=== PATIENT | female | born 1980 | race Caucasian/White ===

== ENCOUNTER 2017-01-17 00:20 | Emergency (ER) | payer OTHER ==
[2017-01-17] MEDS ORDERED: Sodium Chloride 0.9% 1,000 ML IV ONE (00:52)
[2017-01-17] MEDS ORDERED: diphenhydrAMINE 50 MG/ML SDV IVPUSH ONE (00:52)
[2017-01-17] MEDS ORDERED: Ondansetron 4 MG/2 ML SDV IVPUSH ONE (00:52)
[2017-01-17] MEDS ORDERED: Ketorolac 30 MG/ML SDV IVPUSH ONE (00:52)
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
[2017-01-17 01:33] LABS: CHLORIDE,CL 106 mmol/L (98-110); SODIUM,NA 137 mmol/L (136-146)
[2017-01-17 03:14] VITALS: BP 135/75
--- NOTE | 2017-01-17 18:17 | CT ---
EXAM DATE: 01/17/17 PATIENT'S AGE: 36 Patient: KEVEN DEGROOT Facility: [place], [place] Site . Site : 1980 Study: CT Head WO CONT [id number] 2:06:42 AM Ordering Physician: Do Mcadams Final Report: INDICATION: Headache TECHNIQUE: CT head without contrast. COMPARISON: MR brain June 20, 2008 FINDINGS: CSF spaces: Within normal limits for age. Brain parenchyma: The fritz-white differentiation is normal. No sign of mass, hemorrhage, or midline shift. Skull base and calvarium: The visualized paranasal sinuses and mastoid air cells demonstrate no acute or significant findings. The visualized orbits are grossly unremarkable. No skull fractures. IMPRESSION: Unremarkable noncontrast head CT. Please note that all CT scans at this facility use dose modulation, iterative reconstruction, and/or weight-based dosing when appropriate to reduce radiation dose to as low as reasonably achievable. Dictated by Ann Marie Lopez MD @ Jan 17 2017 2:16AM (Electronic Signature) Report Signed [facility] Proxy. [facility]
== END 2017-01-17 03:15 | disposition home or self-care (01) ==
LOC: MW.ED 00:20
DX: G44.209 Tension-type headache, unspecified, not intractable (principal); M62.838 Other muscle spasm; Z79.899 Other long term (current) drug therapy; Z87.440 Personal history of urinary (tract) infections; Z90.49 Acquired absence of other specified parts of digestive tract
CPT/HCPCS: 70450; 80053; 85025; 96361; 96374; 96375; 99284; J1200; J1885; J2360; J2405; J7040; 99283

== ENCOUNTER 2017-07-24 14:01 | Emergency (ER) | payer OTHER ==
[2017-07-24] MEDS ORDERED: Bacitracin Oint 1 GM U/D Packet TOP ONE (16:20)
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
[2017-07-24] MEDS ORDERED: Morphine 4 MG/ML Syringe IM ONE (16:36)
[2017-07-24] MEDS ORDERED: Levofloxacin 500 MG Tab PO ONE (16:48)
[2017-07-24] MEDS ORDERED: Levofloxacin 250 MG Tab PO ONE (16:49)
[2017-07-24] MEDS ORDERED: Levofloxacin 500 MG Tab ONE (16:57)
[2017-07-24 18:31] VITALS: BP 124/75
--- NOTE | 2017-07-25 13:46 | CR ---
EXAM DATE: 07/24/17 PATIENT'S AGE: 37 Patient: KEVEN DEGROOT Facility: [place], [place] Site . Site : 1980 Study: XRay Extremity Left [id number] 2:39:32 PM Ordering Physician: Doctor Kaba Final Report: INDICATION: Soft tissue infection medial left great toe. TECHNIQUE: Two views of the left foot. COMPARISON: April 08, 2016. FINDINGS: There is soft tissue swelling along the medial aspect of the left great toe. This is new compared to the prior study. There is no evidence for underlying erosion or soft tissue gas. There appears to be soft tissue swelling anterior to the ankle. Postsurgical change of the ankle apparent Spurring of the dorsal midfoot and calcaneus. IMPRESSION: Soft tissue swelling along the left great toe particularly medially. No subcutaneous gas or skeletal erosion. Dictated by Brian Faulkner MD @ 07/24/2017 2:54:02 PM Dictated by: Brian Faulkner MD @ 07/24/2017 14:54:17 (Electronic Signature) Report Signed [facility] Proxy. [facility]
== END 2017-07-24 18:00 | disposition home or self-care (01) ==
LOC: MW.ED 14:01
DX: L03.116 Cellulitis of left lower limb (principal); F17.210 Nicotine dependence, cigarettes, uncomplicated
CPT/HCPCS: 73620; 87070; 96372; 99284; A9270; J2270; 87077; 87186

== ENCOUNTER 2018-04-12 20:54 | Inpatient (IN) | payer OTHER ==
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
[2018-04-12] MEDS ORDERED: Ketorolac 60 MG/2 ML SDV IM ONE (21:32)
[2018-04-12] MEDS ORDERED: Sodium Chloride 0.9% 2.5 ML Syringe FLUSH PRN (21:41)
[2018-04-12] MEDS ORDERED: Sodium Chloride 0.9% 10 ML Syringe FLUSH PRN (21:41)
[2018-04-12] MEDS ORDERED: cefTRIAXone 1 GM in Premix Bag 1 BAG IV ONE (21:50)
[2018-04-12 21:54] LABS: CHLORIDE,CL 102 mmol/L (98-107); SODIUM,NA 135 mmol/L (136-145)
[2018-04-12] MEDS ORDERED: Morphine 2 MG/ML Syringe IVPUSH ONE (23:35)
[2018-04-13] MEDS: Morphine 2 MG/ML Syringe IVPUSH PRN ×9 (03:01→22:43)
[2018-04-13] MEDS: Sodium Chloride 0.9% 1,000 ML IV SCH (03:06)
[2018-04-13] MEDS: oxyCODONE 5 MG Tab PO PRN ×5 (03:58→22:42)
[2018-04-13 06:03] LABS: CHLORIDE,CL 104 mmol/L (98-107); SODIUM,NA 138 mmol/L (136-145)
[2018-04-13] MEDS ORDERED: Sodium Chloride 0.9% 1,000 ML IV ONE (07:04)
[2018-04-13] MEDS ORDERED: Ketorolac 30 MG/ML SDV IVPUSH ONE (07:06)
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
[2018-04-13] MEDS: Piperacillin/Tazobactam 3.375 GM in Sodium Chloride 0.9% 50 ML IV SCH ×3 (08:00→20:35)
[2018-04-13] MEDS: Vancomycin 1.5 GM in Sodium Chloride 0.9% 500 ML IV SCH ×2 (08:50→16:20)
--- NOTE | 2018-04-13 11:18 | US ---
EXAM DATE: 04/12/18 PATIENT'S AGE: 37 Patient: KEVEN DEGROOT Facility: [place], [place] Site . Site : 1980 Study: US Extremity Venous left [id number]/26/2018 10:24:14 PM Ordering Physician: Doctor Kaba Final Report: INDICATION: Pain, previous ankle fracture. COMPARISON: 01/07/2016 FINDINGS: Ultrasound of the venous drainage of the left lower extremity shows no evidence of deep venous thrombosis. There is normal antegrade flow from the posterior tibial and popliteal veins superiorly through the common femoral vein. There is normal augmentation and compressibility of the veins. There has been no interval change. IMPRESSION: NO EVIDENCE OF DEEP VENOUS THROMBOSIS ON ULTRASOUND EXAMINATION OF THE LEFT LOWER EXTREMITY. Dictated by Suleman Ya MD @ Apr 12 2018 10:34PM (Electronic Signature) Report Signed by Proxy. DONTE
--- NOTE | 2018-04-13 11:19 | US ---
EXAM DATE: 04/12/18 PATIENT'S AGE: 37 Patient: KEVEN DEGROOT Facility: [place], [place] : 1980 Study: US Extremity Arterial [id number]/26/2018 10:24:58 PM Ordering Physician: Doctor Kaba Final Report: Exam: The left lower extremity arteries were examined per exam specific protocol with fritz-scale ultrasound, color-flow and Doppler spectral analysis. Peak systolic velocities (PSV), Doppler waveform quality and velocity ratios if applicable, were documented at sites per exam specific protocol. Indication: Left leg pain. Comparison: None. Findings: The left lower extremity arteries are patent with multiphasic flow throughout. Velocities measure 124 cm/sec in the common femoral artery, 119-136 cm/sec in the superficial femoral artery, 77 cm/sec in the popliteal artery, 44 cm/sec in the proximal posterior tibial artery transitioning to 110 cm/sec in the distal posterior tibial artery, 29 cm/sec in the peroneal artery, 35 cm/sec in the anterior tibial artery, and 120 cm/sec in the dorsalis pedis artery. Impression: Patent left lower extremity arteries with multiphasic flow. No evidence of hemodynamically significant stenosis. Dictated by Ivan Santiago MD @ Apr 13 2018 7:51AM (Electronic Signature) Report Signed by Proxy. DONTE
--- NOTE | 2018-04-13 11:20 | CR ---
EXAM DATE: 04/12/18 PATIENT'S AGE: 37 Patient: KEVEN DEGROOT Facility: [place], [place] Site . Site : 1980 Study: XRay Extremity Left ankle [id number]/26/2018 10:34:48 PM Ordering Physician: Doctor Kaba Final Report: HISTORY: Pain and swelling with no history of injury. COMPARISON: 01/07/2016 FINDINGS: AP, lateral and oblique views of the left ankle were obtained for a total of three views. There is no sign of acute fracture or dislocation. Again seen are changes of ORIF of a distal fibular fracture with a lateral metallic plate and multiple anchoring screws. A single interfragmentary screws again seen. Again seen are tunnels in the distal tibia and fibula from stabilization of the syndesmosis, with suture anchors. Again seen is prominent sclerosis of the mid-distal tibial and fibular shafts with moderate deformity, consistent with solid osseous union of oblique fractures. The ankle mortise is intact, with mild irregularity of the articular surfaces consistent with secondary osteoarthritis. The talar dome is intact. Again seen is prominence lateral and moderate medial soft tissue swelling with no sign of radiopaque foreign body or gas in the soft tissues. Moderate diffuse soft tissue swelling is seen in the distal calf. There is no sign of a joint effusion. Again seen is a moderate plantar calcaneal spur. IMPRESSION: NO CHANGE IN PROMINENT LATERAL AND MODERATE MEDIAL SOFT TISSUE SWELLING OF THE ANKLE, WITH CONTINUED MODERATE DIFFUSE SOFT TISSUE SWELLING OF THE DISTAL CALF. STABLE APPEARANCE OF ORIF OF A DISTAL FIBULAR FRACTURE AND STABILIZATION OF THE TIBIAL-FIBULAR SYNDESMOSIS. STABLE MODERATE DEFORMITY FROM HEALED FRACTURES OF THE MID-DISTAL TIBIAL AND FIBULAR SHAFT. Dictated by Suleman Ya MD @ Apr 12 2018 10:41PM (Electronic Signature) Report Signed by Proxy. DONTE
--- NOTE | 2018-04-13 11:21 | CR ---
EXAM DATE: 04/12/18 PATIENT'S AGE: 37 Patient: KEVEN DEGROOT Facility: [place], [place] Site . Site : 1980 Study: XRay Extremity Left tib/fib [id number]/26/2018 10:35:16 PM Ordering Physician: Doctor Kaba Final Report: INDICATION: Pain and swelling with no history of injury. COMPARISON: Left ankle from 01/07/2016 FINDINGS: AP and lateral views of the left tibia and fibula were obtained. Again seen are old, healed fractures of the mid-distal tibial shaft with moderate deformity. There is moderate osseous bridging of the interosseous space in the area of the fractures. Again seen are changes of ORIF of a distal fibular fracture with a lateral metallic sideplate, multiple anchoring screws, and a single interfragmentary screw. Changes of stabilization of the tibial-fibular syndesmosis are again seen with transverse tunnels in the distal tibia and fibula as well as suture anchors. There is no sign of acute fracture, dislocation, or joint effusion. There is moderate diffuse soft tissue swelling of the calf and knee. There is no sign of any gas in the soft tissues or radiopaque foreign body. Surgical clips are seen from vascular surgery in the lateral aspect of the proximal calf. Again seen are mild degenerative changes of the ankle, with mild irregularity of the articular surface of the distal tibia. The visualized portion of the knee is unremarkable with no degenerative change. IMPRESSION: MODERATE DIFFUSE SOFT TISSUE SWELLING OF THE CALF AND KNEE. NO SIGN OF RADIOPAQUE FOREIGN BODY OR GAS IN THE SOFT TISSUES. NO SIGN OF UNDERLYING OSSEOUS INJURY. STABLE OLD, HEALED FRACTURES OF THE MID-DISTAL FIBULAR AND TIBIAL SHAFTS. STABLE POSTOPERATIVE CHANGES OF THE LEFT ANKLE. Dictated by Suleman Ya MD @ Apr 12 2018 10:47PM (Electronic Signature) Report Signed by Proxy. DONTE
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
[2018-04-13] MEDS: Pregabalin 50 MG Cap PO SCH ×2 (13:57→20:08)
[2018-04-13] MEDS: Ketorolac 30 MG/ML SDV IVPUSH PRN ×2 (16:19→23:53)
[2018-04-14] MEDS: Sodium Chloride 0.9% 1,000 ML IV SCH (00:45)
[2018-04-14] MEDS: Morphine 2 MG/ML Syringe IVPUSH PRN ×6 (00:46→22:45)
[2018-04-14] MEDS: Vancomycin 1.5 GM in Sodium Chloride 0.9% 500 ML IV SCH ×4 (00:49→23:00)
[2018-04-14] MEDS: Piperacillin/Tazobactam 3.375 GM in Sodium Chloride 0.9% 50 ML IV SCH ×4 (02:38→19:38)
[2018-04-14] MEDS: oxyCODONE 5 MG Tab PO PRN ×2 (05:13→08:54)
[2018-04-14 05:50] LABS: CHLORIDE,CL 107 mmol/L (98-107); SODIUM,NA 139 mmol/L (136-145)
[2018-04-14] MEDS: Ketorolac 30 MG/ML SDV IVPUSH PRN ×2 (08:05→14:21)
[2018-04-14] MEDS: Pregabalin 50 MG Cap PO SCH ×2 (08:54→20:25)
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
[2018-04-14] MEDS ORDERED: Sodium Chloride 0.9% 1,000 ML IV ONE (09:11)
[2018-04-14] MEDS ORDERED: Ondansetron 4 MG/2 ML SDV IVPUSH ONE (12:11)
[2018-04-14] MEDS: Temazepam 15 MG Cap PO PRN (22:50)
[2018-04-15] MEDS: Ondansetron 4 MG/2 ML SDV IVPUSH PRN ×3 (00:43→11:12)
[2018-04-15] MEDS: Piperacillin/Tazobactam 3.375 GM in Sodium Chloride 0.9% 50 ML IV SCH ×4 (00:43→18:55)
[2018-04-15] MEDS: Morphine 2 MG/ML Syringe IVPUSH PRN ×3 (00:46→23:11)
[2018-04-15] MEDS ORDERED: Sodium Chloride 0.9% 1,000 ML IV ONE (08:22)
--- NOTE | 2018-04-15 08:55 | PCM.PN ---
- General Info Date of Service: 04/15/18 Admission Dx/Problem (Free Text): The patient is a 37-year-old lady admitted to acute hospitalization on April 13, 2018 after concern for sepsis. The patient had swelling, pain in her left lower extremity and there was concern about osteomyelitis. The patient today says that she is feeling somewhat better although later in the afternoon she had an episode of severe nausea and vomiting. The patient had been unable to tolerate diet. The patient also has poor IV access and is receiving IV vancomycin. The patient today has been doing somewhat better. Her pain has been better controlled with the use of Lyrica. The patient has been ambulating. Functional Status: Reports: Pain Controlled, Ambulating. Denies: Tolerating Diet - Review of Systems General: Reports: Weakness HEENT: Reports: No Symptoms Pulmonary: Reports: No Symptoms Cardiovascular: Reports: Chest Pain Gastrointestinal: Reports: Nausea, Vomiting Genitourinary: Reports: No Symptoms Musculoskeletal: Reports: Leg Pain Skin: Reports: No Symptoms Neurological: Reports: No Symptoms Psychiatric: Reports: No Symptoms - Patient Data Vitals - Most Recent: Last Vital Signs Temp 37.7 C 04/15/18 03:35 Pulse 86 04/15/18 03:35 Resp 16 04/15/18 03:35 BP 123/71 04/15/18 03:35 Pulse Ox 92 L 04/15/18 03:35 Weight - Most Recent: 113.262 kg I&O - Last 24 Hours: Intake & Output 04/14/18 04/15/18 04/15/18 22:59 06:59 14:59 Intake Total 50 600 Balance 50 600 Lab Results Last 24 Hours: Laboratory Results - last 24 hr 04/15/18 04/15/18 Range/Units 06:23 06:23 WBC 11.91 H (4.0-11.0) K/uL RBC 3.45 L (4.30-5.90) M/uL Hgb 9.4 L (12.0-16.0) g/dL Hct 30.5 L (36.0-46.0) % MCV 88.4 (80.0-98.0) fL MCH 27.2 (27.0-32.0) pg MCHC 30.8 L (31.0-37.0) g/dL RDW Std Deviation 52.9 (28.0-62.0) fl RDW Coeff of Cass 16 H (11.0-15.0) % Plt Count 186 (150-400) K/uL MPV 10.30 (7.40-12.00) fL Neut % (Auto) 76.0 (48.0-80.0) % Lymph % (Auto) 12.8 L (16.0-40.0) % [place] % (Auto) 10.2 (0.0-15.0) % Eos % (Auto) 0.8 (0.0-7.0) % Baso % (Auto) 0.2 (0.0-1.5) % Neut # (Auto) 9.1 H (1.4-5.7) K/uL Lymph # (Auto) 1.5 (0.6-2.4) K/uL [place] # (Auto) 1.2 H (0.0-0.8) K/uL Eos # (Auto) 0.1 (0.0-0.7) K/uL Baso # (Auto) 0.0 (0.0-0.1) K/uL Nucleated RBC % 0.0 /100WBC Nucleated RBCs # 0 K/uL Sodium 137 (136-145) mmol/L Potassium 3.7 (3.5-5.1) mmol/L Chloride 107 (98-107) mmol/L Carbon Dioxide 24.3 (21.0-32.0) mmol/L BUN 11 (7.0-18.0) mg/dL Creatinine 1.1 H (0.6-1.0) mg/dL Est Cr Clr Drug Dosing 73.18 mL/min Estimated GFR (MDRD) 55.9 ml/min Glucose 111 H (74-106) mg/dL Calcium 7.9 L (8.5-10.1) mg/dL Total Bilirubin 0.5 (0.2-1.0) mg/dL AST 15 (15-37) IU/L ALT 25 (14-63) IU/L Alkaline Phosphatase 97 (46-116) U/L Total Protein 6.4 (6.4-8.2) g/dL Albumin 2.3 L (3.4-5.0) g/dL Globulin 4.1 H (2.0-3.5) g/dL Albumin/Globulin Ratio 0.6 L (1.3-2.8) Matt Results Last 24 Hours: Microbiology 04/13/18 07:30 Urine Culture - Final Urine, Voided MIXED NERY <1000 CFU/ML 04/12/18 21:50 Aerobic Blood Culture - Preliminary Blood - Venous NO GROWTH AFTER 2 DAYS Anaerobic Blood Culture - Preliminary NO GROWTH AFTER 2 DAYS 04/12/18 21:55 Aerobic Blood Culture - Preliminary Blood - Venous - Lab Draw NO GROWTH AFTER 2 DAYS Anaerobic Blood Culture - Preliminary NO GROWTH AFTER 2 DAYS Med Orders - Current: Current Medications Vancomycin HCl 1.5 gm/ Sodium (Chloride) 500 mls @ 333.333 mls/hr IV Q8H [facility] Last Admin: 04/14/18 23:00 Dose: 333.333 mls/hr Piperacillin Sod/Tazobactam (Sod 3.375 gm/ Sodium Chloride) 50 mls @ 100 mls/ hr IV Q6H [facility] Last Admin: 04/15/18 06:43 Dose: 100 mls/hr Sodium Chloride (Normal Saline) 1,000 mls @ 999 mls/hr IV STAT ONE Stop: 04/15/18 09:22 Ketorolac Tromethamine (Toradol) 30 mg IVPUSH Q6H PRN PRN Reason: Pain Stop: 04/18/18 15:44 Last Admin: 04/14/18 14:21 Dose: 30 mg Morphine Sulfate (Morphine) 2 mg IVPUSH Q2H PRN PRN Reason: Pain Last Admin: 04/15/18 00:46 Dose: 2 mg Ondansetron HCl (Zofran) 4 mg IVPUSH Q6H PRN PRN Reason: Nausea Last Admin: 04/15/18 00:43 Dose: 4 mg Oxycodone HCl (Oxycodone) 5 mg PO Q4H PRN PRN Reason: Pain Last Admin: 04/14/18 08:54 Dose: 5 mg Pregabalin (Lyrica) 50 mg PO BID [facility] Last Admin: 04/14/18 20:25 Dose: 50 mg Sodium Chloride (Saline Flush) 10 ml FLUSH ASDIRECTED PRN PRN Reason: Keep Vein Open Sodium Chloride (Saline Flush) 2.5 ml FLUSH ASDIRECTED PRN PRN Reason: Keep Vein Open Temazepam (Restoril) 15 mg PO BEDTIME PRN PRN Reason: Sleep Last Admin: 04/14/18 22:50 Dose: 15 mg Vancomycin HCl (Pharmacy To Dose - Vancomycin) 1 dose .XX ASDIRECTED [facility] Discontinued Medications Ceftriaxone Sodium/Dextrose 1 (gm/ Premix) 50 mls @ 100 mls/hr IV ONETIME ONE Stop: 04/12/18 22:19 Last Admin: 04/12/18 22:34 Dose: 100 mls/hr Vancomycin HCl 1 gm/ Sodium (Chloride) 250 mls @ 250 mls/hr IV ONETIME ONE Stop: 04/13/18 00:23 Last Admin: 04/12/18 23:29 Dose: 250 mls/hr Sodium Chloride (Normal Saline) 1,000 mls @ 200 mls/hr IV ASDIRECTED [facility] Last Infusion: 04/14/18 00:48 Dose: 200 mls/hr Sodium Chloride (Normal Saline) 1,000 mls @ 999 mls/hr IV STAT ONE Stop: 04/13/18 08:04 Last Admin: 04/13/18 07:54 Dose: 999 mls/hr Sodium Chloride (Normal Saline) 1,000 mls @ 125 mls/hr IV CONTINUOUS ONE Stop: 04/14/18 17:10 Last Admin: 04/14/18 11:22 Dose: 125 mls/hr Ketorolac Tromethamine (Toradol) 60 mg IM ONETIME ONE Stop: 04/12/18 21:33 Last Admin: 04/12/18 21:38 Dose: 60 mg Ketorolac Tromethamine (Toradol) 30 mg IVPUSH ONETIME ONE Stop: 04/13/18 07:07 Last Admin: 04/13/18 07:49 Dose: 30 mg Morphine Sulfate (Morphine) 2 mg IVPUSH ONETIME ONE Stop: 04/12/18 23:36 Last Admin: 04/12/18 23:42 Dose: 2 mg Ondansetron HCl (Zofran) 4 mg IVPUSH ONETIME ONE Stop: 04/14/18 12:12 Last Admin: 04/14/18 12:20 Dose: 4 mg - Exam Quality Assessment: No: Supplemental Oxygen, Urine Catheter General: Alert, Oriented, Cooperative, No Acute Distress HEENT: Pupils Equal, Pupils Reactive, EOMI. No: Scleral Icterus Neck: Supple, Trachea Midline, No Thyromegaly. No: Lymphadenopathy Lungs: Clear to Auscultation, Normal Respiratory Effort Cardiovascular: Regular Rate, Regular Rhythm GI/Abdominal Exam: Normal Bowel Sounds, Soft, Non-Tender, No Distention, No Mass (Female) Exam: Deferred Back Exam: Normal Inspection, Full Range of Motion Extremities: No Pedal Edema (Edema predominantly left lower extremity). No: Normal Inspection Skin: Warm, Dry, Intact, Other (Scarring at skin graft site.) Neurological: No New Focal Deficit Psy/Mental Status: Alert, Normal Affect, Normal Mood - Problem List & Annotations (1) Cellulitis SNOMED Code(s): 067140724 Code(s): L03.90 - CELLULITIS, UNSPECIFIED Status: Acute Current Visit: No Qualifiers: Site of cellulitis: extremity Site of cellulitis of extremity: lower extremity Laterality: left Qualified Code(s): L03.116 - Cellulitis of left lower limb (2) Sepsis SNOMED Code(s): 45903963 Code(s): A41.9 - SEPSIS, UNSPECIFIED ORGANISM Status: Acute Priority: High Current Visit: Yes Qualifiers: Sepsis type: sepsis due to unspecified organism Qualified Code(s): A41.9 - Sepsis, unspecified organism Annotation/Comment:: Resolved (3) Fracture of left fibula SNOMED Code(s): 69984688 Code(s): S82.402A - UNSP FRACTURE OF SHAFT OF LEFT FIBULA, INIT FOR CLOS FX Status: Chronic Priority: Medium Current Visit: Yes Qualifiers: Encounter type: subsequent encounter Fracture type: closed Fracture morphology: spiral Fracture alignment: displaced (4) Obesity (BMI 35.0-39.9 without comorbidity) SNOMED Code(s): 441920407, 358062779 Code(s): E66.9 - OBESITY, UNSPECIFIED Status: Acute Current Visit: Yes - Problem List Review Problem List Initiated/Reviewed/Updated: Yes - Plan Plan:: The patient is a 37-year-old lady who had been admitted secondary to sepsis with an elevated white cell count, CRP, sedimentation rate and severe pain in the left lower extremity. There was a concern with regards to osteomyelitis of a previous ORIF with fracture of her left lower extremity. Three-phase bone scan obtained did show some evidence of uptake at the site of the previous surgery but wasn't sufficient to completely exclude osteomyelitis. Since that time the patient has had no change essentially in her sedimentation rate and her CRP has increased. The patient also has unresolved leukocytosis. A tagged WBC scan was recommended. The patient has been evaluated by orthopedics. The plan was to send the patient home with IV line in order to receive IV vancomycin as an outpatient. The patient has poor venous access. Ulcer on the plantar surface of her left first metatarsal head is essentially unchanged. Same for the distal tip of the third digit. It should also be noted that the patient was not able to tolerate diet and she had been experiencing worse nausea and vomiting. The patient had been given one-time dose of Phenergan IM. The decision was to keep the patient for one more day. The patient will likely need to have PICC line placement in order for IV antibiotics. She does need that tagged WBC and this is not available at this time. Patient has been encouraged to ambulate. Repeat laboratory testing since been ordered for the morning.
[2018-04-15] MEDS: Pregabalin 50 MG Cap PO SCH ×3 (09:40→20:59)
[2018-04-15] MEDS: Vancomycin 1.5 GM in Sodium Chloride 0.9% 500 ML IV SCH ×3 (09:41→20:59)
[2018-04-15] MEDS ORDERED: Promethazine 25 MG/ML SDV IM ONE (11:09)
[2018-04-15] MEDS: Ketorolac 30 MG/ML SDV IVPUSH PRN (18:56)
[2018-04-15] MEDS ORDERED: Simethicone 80 MG Tab.Chew PO PRN (23:40)
[2018-04-16] MEDS: Piperacillin/Tazobactam 3.375 GM in Sodium Chloride 0.9% 50 ML IV SCH ×2 (00:17→06:30)
[2018-04-16] MEDS: Morphine 2 MG/ML Syringe IVPUSH PRN ×5 (02:47→23:44)
[2018-04-16] MEDS: Temazepam 15 MG Cap PO PRN (02:47)
[2018-04-16] MEDS: Pregabalin 50 MG Cap PO SCH ×2 (09:57→21:15)
[2018-04-16] MEDS ORDERED: Sodium Chloride 0.9% 1,000 ML IV SCH (10:45)
[2018-04-16] MEDS: Vancomycin 1.5 GM in Sodium Chloride 0.9% 500 ML IV SCH (10:58)
[2018-04-16] MEDS ORDERED: Polyethylene Glycol 3350 Powder 17 GM Packet PO ONE (11:15)
[2018-04-16] MEDS ORDERED: Docusate Sodium 100 MG Cap PO PRN (11:17)
--- NOTE | 2018-04-16 12:53 | PCM.PN ---
- General Info Date of Service: 04/16/18 Admission Dx/Problem (Free Text): The patient is a 37-year-old lady who had been admitted to acute hospitalization out of concern for cellulitis/osteomyelitis of her left lower extremity. The patient initially the concern for the cellulitis was treated with Zosyn and vancomycin. The patient has been evaluated by orthopedic surgeon. Patient today says that she does not have any nausea or vomiting. She has been doing much better. She has been complaining of bloating and swelling and fluid retention. The patient's pain has been controlled. She also has been tolerating diet. Functional Status: Reports: Pain Controlled, Tolerating Diet, Ambulating. Denies: New Symptoms - Review of Systems General: Reports: No Symptoms HEENT: Reports: No Symptoms Pulmonary: Reports: No Symptoms Cardiovascular: Reports: Edema Gastrointestinal: Reports: No Symptoms Genitourinary: Reports: No Symptoms Musculoskeletal: Reports: No Symptoms Skin: Reports: No Symptoms Neurological: Reports: No Symptoms Psychiatric: Reports: No Symptoms - Patient Data Vitals - Most Recent: Last Vital Signs Temp 36.7 C 04/16/18 08:00 Pulse 80 04/16/18 04:58 Resp 20 04/16/18 08:00 BP 112/74 04/16/18 08:00 Pulse Ox 95 04/16/18 04:58 Weight - Most Recent: 121.88 kg I&O - Last 24 Hours: Intake & Output 04/15/18 04/16/18 04/16/18 22:59 06:59 14:59 Intake Total 500 1000 Output Total 0 Balance 500 1000 Lab Results Last 24 Hours: Laboratory Results - last 24 hr 04/15/18 04/16/18 04/16/18 Range/Units 17:11 07:30 07:30 WBC 11.06 H (4.0-11.0) K/uL RBC 3.40 L (4.30-5.90) M/uL Hgb 9.4 L (12.0-16.0) g/dL Hct 30.1 L (36.0-46.0) % MCV 88.5 (80.0-98.0) fL MCH 27.6 (27.0-32.0) pg MCHC 31.2 (31.0-37.0) g/dL RDW Std Deviation 52.2 (28.0-62.0) fl RDW Coeff of [place] 16 H (11.0-15.0) % Plt Count 221 (150-400) K/uL MPV 10.20 (7.40-12.00) fL Neut % (Auto) 68.2 (48.0-80.0) % Lymph % (Auto) 18.7 (16.0-40.0) % [place] % (Auto) 10.8 (0.0-15.0) % Eos % (Auto) 2.0 (0.0-7.0) % Baso % (Auto) 0.3 (0.0-1.5) % Neut # (Auto) 7.5 H (1.4-5.7) K/uL Lymph # (Auto) 2.1 (0.6-2.4) K/uL [place] # (Auto) 1.2 H (0.0-0.8) K/uL Eos # (Auto) 0.2 (0.0-0.7) K/uL Baso # (Auto) 0.0 (0.0-0.1) K/uL Nucleated RBC % 0.0 /100WBC Nucleated RBCs # 0 K/uL ESR 82 H (0-19) mm/hr Sodium 142 (136-145) mmol/L Potassium 4.0 (3.5-5.1) mmol/L Chloride 109 H (98-107) mmol/L Carbon Dioxide 26.2 (21.0-32.0) mmol/L BUN 19 H (7.0-18.0) mg/dL Creatinine 2.7 H (0.6-1.0) mg/dL Est Cr Clr Drug Dosing 29.81 mL/min Estimated GFR (MDRD) 19.8 ml/min Glucose 109 H (74-106) mg/dL Calcium 7.8 L (8.5-10.1) mg/dL Total Bilirubin 0.6 (0.2-1.0) mg/dL AST 13 L (15-37) IU/L ALT 21 (14-63) IU/L Alkaline Phosphatase 101 (46-116) U/L C-Reactive Protein 8.50 H (0.00-0.90) mg/dL Total Protein 6.5 (6.4-8.2) g/dL Albumin 2.3 L (3.4-5.0) g/dL Globulin 4.2 H (2.0-3.5) g/dL Albumin/Globulin Ratio 0.6 L (1.3-2.8) Vancomycin Trough (5.0-10.0) ug/mL 04/16/18 Range/Units 07:30 WBC (4.0-11.0) K/uL RBC (4.30-5.90) M/uL Hgb (12.0-16.0) g/dL Hct (36.0-46.0) % MCV (80.0-98.0) fL MCH (27.0-32.0) pg MCHC (31.0-37.0) g/dL RDW Std Deviation (28.0-62.0) fl RDW Coeff of Cass (11.0-15.0) % Plt Count (150-400) K/uL MPV (7.40-12.00) fL Neut % (Auto) (48.0-80.0) % Lymph % (Auto) (16.0-40.0) % [place] % (Auto) (0.0-15.0) % Eos % (Auto) (0.0-7.0) % Baso % (Auto) (0.0-1.5) % Neut # (Auto) (1.4-5.7) K/uL Lymph # (Auto) (0.6-2.4) K/uL [place] # (Auto) (0.0-0.8) K/uL Eos # (Auto) (0.0-0.7) K/uL Baso # (Auto) (0.0-0.1) K/uL Nucleated RBC % /100WBC Nucleated RBCs # K/uL ESR (0-19) mm/hr Sodium (136-145) mmol/L Potassium (3.5-5.1) mmol/L Chloride (98-107) mmol/L Carbon Dioxide (21.0-32.0) mmol/L BUN (7.0-18.0) mg/dL Creatinine (0.6-1.0) mg/dL Est Cr Clr Drug Dosing mL/min Estimated GFR (MDRD) ml/min Glucose (74-106) mg/dL Calcium (8.5-10.1) mg/dL Total Bilirubin (0.2-1.0) mg/dL AST (15-37) IU/L ALT (14-63) IU/L Alkaline Phosphatase (46-116) U/L C-Reactive Protein (0.00-0.90) mg/dL Total Protein (6.4-8.2) g/dL Albumin (3.4-5.0) g/dL Globulin (2.0-3.5) g/dL Albumin/Globulin Ratio (1.3-2.8) Vancomycin Trough 36.0 H (5.0-10.0) ug/mL Matt Results Last 24 Hours: Microbiology 04/12/18 21:50 Aerobic Blood Culture - Preliminary Blood - Venous NO GROWTH AFTER 3 DAYS Anaerobic Blood Culture - Preliminary NO GROWTH AFTER 3 DAYS 04/12/18 21:55 Aerobic Blood Culture - Preliminary Blood - Venous - Lab Draw NO GROWTH AFTER 3 DAYS Anaerobic Blood Culture - Preliminary NO GROWTH AFTER 3 DAYS Med Orders - Current: Current Medications Docusate Sodium (Colace) 100 mg PO BID PRN PRN Reason: Constipation Sodium Chloride (Normal Saline) 1,000 mls @ 175 mls/hr IV ASDIRECTED DENISSE Stop: 04/16/18 16:28 Last Admin: 04/16/18 11:27 Dose: 175 mls/hr Morphine Sulfate (Morphine) 2 mg IVPUSH Q2H PRN PRN Reason: Pain Last Admin: 04/16/18 11:26 Dose: 2 mg Ondansetron HCl (Zofran) 4 mg IVPUSH Q6H PRN PRN Reason: Nausea Last Admin: 04/15/18 11:12 Dose: 4 mg Oxycodone HCl (Oxycodone) 5 mg PO Q4H PRN PRN Reason: Pain Last Admin: 04/14/18 08:54 Dose: 5 mg Pregabalin (Lyrica) 50 mg PO BID [facility] Last Admin: 04/16/18 09:57 Dose: 50 mg Simethicone (Simethicone) 80 mg PO Q4H PRN PRN Reason: bloated Last Admin: 04/16/18 00:16 Dose: 80 mg Sodium Chloride (Saline Flush) 10 ml FLUSH ASDIRECTED PRN PRN Reason: Keep Vein Open Sodium Chloride (Saline Flush) 2.5 ml FLUSH ASDIRECTED PRN PRN Reason: Keep Vein Open Temazepam (Restoril) 15 mg PO BEDTIME PRN PRN Reason: Sleep Last Admin: 04/16/18 02:47 Dose: 15 mg Discontinued Medications Ceftriaxone Sodium/Dextrose 1 (gm/ Premix) 50 mls @ 100 mls/hr IV ONETIME ONE Stop: 04/12/18 22:19 Last Admin: 04/12/18 22:34 Dose: 100 mls/hr Vancomycin HCl 1 gm/ Sodium (Chloride) 250 mls @ 250 mls/hr IV ONETIME ONE Stop: 04/13/18 00:23 Last Admin: 04/12/18 23:29 Dose: 250 mls/hr Sodium Chloride (Normal Saline) 1,000 mls @ 200 mls/hr IV ASDIRECTED [facility] Last Infusion: 04/14/18 00:48 Dose: 200 mls/hr Vancomycin HCl 1.5 gm/ Sodium (Chloride) 500 mls @ 333.333 mls/hr IV Q8H [facility] Last Admin: 04/15/18 17:16 Dose: Not Given Piperacillin Sod/Tazobactam (Sod 3.375 gm/ Sodium Chloride) 50 mls @ 100 mls/ hr IV Q6H [facility] Last Admin: 04/16/18 06:30 Dose: 100 mls/hr Sodium Chloride (Normal Saline) 1,000 mls @ 999 mls/hr IV STAT ONE Stop: 04/13/18 08:04 Last Admin: 04/13/18 07:54 Dose: 999 mls/hr Sodium Chloride (Normal Saline) 1,000 mls @ 125 mls/hr IV CONTINUOUS ONE Stop: 04/14/18 17:10 Last Admin: 04/14/18 11:22 Dose: 125 mls/hr Sodium Chloride (Normal Saline) 1,000 mls @ 999 mls/hr IV STAT ONE Stop: 04/15/18 09:22 Last Admin: 04/15/18 15:39 Dose: Not Given Vancomycin HCl 1.5 gm/ Sodium (Chloride) 500 mls @ 333.333 mls/hr IV Q12H [facility] Last Admin: 04/16/18 10:58 Dose: Not Given Ketorolac Tromethamine (Toradol) 60 mg IM ONETIME ONE Stop: 04/12/18 21:33 Last Admin: 04/12/18 21:38 Dose: 60 mg Ketorolac Tromethamine (Toradol) 30 mg IVPUSH ONETIME ONE Stop: 04/13/18 07:07 Last Admin: 04/13/18 07:49 Dose: 30 mg Ketorolac Tromethamine (Toradol) 30 mg IVPUSH Q6H PRN PRN Reason: Pain Stop: 04/18/18 15:44 Last Admin: 04/15/18 18:56 Dose: 30 mg Morphine Sulfate (Morphine) 2 mg IVPUSH ONETIME ONE Stop: 04/12/18 23:36 Last Admin: 04/12/18 23:42 Dose: 2 mg Ondansetron HCl (Zofran) 4 mg IVPUSH ONETIME ONE Stop: 04/14/18 12:12 Last Admin: 04/14/18 12:20 Dose: 4 mg Polyethylene Glycol (Miralax) 17 gm PO ONETIME ONE Stop: 04/16/18 11:16 Last Admin: 04/16/18 11:27 Dose: 17 gm Promethazine HCl (Phenergan) 12.5 mg IM ONETIME ONE Stop: 04/15/18 11:10 Last Admin: 04/15/18 17:17 Dose: Not Given Vancomycin HCl (Pharmacy To Dose - Vancomycin) 1 dose .XX ASDIRECTED DENISSE - Exam Quality Assessment: No: Supplemental Oxygen General: Alert, Oriented, Cooperative, No Acute Distress HEENT: Pupils Equal, Pupils Reactive Neck: Supple, Trachea Midline Lungs: Clear to Auscultation, Normal Respiratory Effort Cardiovascular: Regular Rate, Regular Rhythm GI/Abdominal Exam: Normal Bowel Sounds, Soft, Non-Tender, No Distention (Female) Exam: Deferred Back Exam: Normal Inspection Extremities: Pedal Edema. No: Normal Inspection Skin: Warm, Dry, Intact Neurological: No New Focal Deficit Psy/Mental Status: Alert, Normal Affect - Problem List & Annotations (1) Acute kidney injury SNOMED Code(s): 46894823 Code(s): N17.9 - ACUTE KIDNEY FAILURE, UNSPECIFIED Status: Acute Priority : High Current Visit: No (2) Cellulitis SNOMED Code(s): 782099581 Code(s): L03.90 - CELLULITIS, UNSPECIFIED Status: Acute Current Visit: No Qualifiers: Site of cellulitis: extremity Site of cellulitis of extremity: lower extremity Laterality: left Qualified Code(s): L03.116 - Cellulitis of left lower limb (3) Sepsis SNOMED Code(s): 27501133 Code(s): A41.9 - SEPSIS, UNSPECIFIED ORGANISM Status: Acute Priority: High Current Visit: Yes Qualifiers: Sepsis type: sepsis due to unspecified organism Qualified Code(s): A41.9 - Sepsis, unspecified organism Annotation/Comment:: Resolved (4) Fracture of left fibula SNOMED Code(s): 50677966 Code(s): S82.402A - UNSP FRACTURE OF SHAFT OF LEFT FIBULA, INIT FOR CLOS FX Status: Chronic Priority: Medium Current Visit: Yes Qualifiers: Encounter type: subsequent encounter Fracture type: closed Fracture morphology: spiral Fracture alignment: displaced (5) Obesity (BMI 35.0-39.9 without comorbidity) SNOMED Code(s): 288615747, 956733218 Code(s): E66.9 - OBESITY, UNSPECIFIED Status: Acute Current Visit: Yes - Problem List Review Problem List Initiated/Reviewed/Updated: Yes - My Orders Last 24 Hours: My Active Orders 04/15/18 23:40 Simethicone 80 mg PO Q4H PRN - Plan Plan:: The patient is a 37-year-old lady being followed for as little osteomyelitis according to three-phase bone scan which was obtained 2 days ago. Also been noted that the patient has had a rise in her creatinine from 0.8 up to 2.7 mg/ dL. This is indicative of acute kidney injury and nephrotoxic medications have been held. This would include Zosyn, vancomycin and Toradol. The patient has had a 16 pound weight gain over the past several days and because of the rise in her creatinine would not recommend Lasix for her at this time. Fluids of also been held and allowed for the body to achieve hemostasis naturally. I have ordered repeat laboratory studies in the morning. The patient also has been recommended to have a tagged WBC scan in order to ascertain a clear picture with regards to osteomyelitis in her left lower extremity. The patient has been encouraged to ambulate. The patient was anticipated to be discharged yesterday however, she had worsening nausea and vomiting and was kept in hospitalization. The patient is not appropriate for discharge at this time secondary to elevations in her creatinine and worsening of her renal function secondary to her acute kidney injury. We'll follow with orthopedic surgeon.
[2018-04-17] MEDS: Morphine 2 MG/ML Syringe IVPUSH PRN ×3 (01:47→10:50)
[2018-04-17] MEDS: Temazepam 15 MG Cap PO PRN (01:48)
[2018-04-17] MEDS: Pregabalin 50 MG Cap PO SCH (08:42)
--- NOTE | 2018-04-17 09:51 | NM ---
EXAM DATE: 04/12/18 PATIENT'S AGE: 37 Patient: KEVEN DEGROOT Facility: [facility] Site Site : [id number] Study: NM-Extremity Left FOOT/ANKLE-04/13/2018 5:32:08 PM Ordering Physician: ZURDO Final Report: HISTORY: 37-year-old female. Suspect osteomyelitis of left foot. TECHNIQUE: 22.7 millicuries of [id number] was injected intravenously. Three phase images of the ankles and feet were obtained. COMPARISON: Left ankle x-rays of 04/12/2018. FINDINGS: The blood flow and blood pool images demonstrate hyperemia of the left ankle region. The delayed images demonstrate high tracer uptake in this area as well. This appears to involve the distal left tibia and probably also the left talus. The plain x-rays demonstrate the patient to be status post open reduction and internal fixation of previous fractures of the distal left tibia and fibula. Internal hardware is still present in the distal left fibula and over the medial aspect of the distal left tibia. Mild delayed uptake in the medial right foot is likely arthritic. IMPRESSION: 1. This is a positive 3 phase bone scan centered on the left ankle. 2. These findings are suspicious for osteomyelitis. Please note however that the specificity of these findings may be decreased given the previous posttraumatic change from the fractures treated with open reduction and internal fixation. 3. If clinically indicated, the specificity of these findings for osteomyelitis could be increased by obtaining a radiolabeled white blood cell scan. Dictated by Souleymane Grant MD @ Apr 14 2018 3:23PM Signed by: Souleymane Grant MD @04/14/2018 3:27:22 PM (Electronic Signature) Report Signed by Proxy. DONTE
[2018-04-17] MEDS: Ondansetron 4 MG/2 ML SDV IVPUSH PRN (10:50)
--- NOTE | 2018-04-17 11:19 | PCM.DCSUM1 ---
Discharge Summary - Hospital Course Free Text/Narrative:: Date of admission: 04/13/18 Date of discharge: 04/17/18 Admission diagnosis: 1. Sepsis secondary to right foot ulcer 2. Possible osteomyelities of right foot 3. Leukocytosis 2/2 above Discharge diagnosis: 1. Acute renal failure likely 2/2 to antibiotics 2. Possible right foot osteomyelitis 2/2 right foot ulcer 3. Leukocytosis Procedures: none Consults: Dr. Perrin, Orthopedics Hospital course: Taya Rich is a 37 y/o female presented to the ER complaining of acute right foot pain. She was admitted for sepsis secondary to right foot ulcer. She was aggressively hydrated with NS and started on IV antibiotics which included Vancomycin and Zosyn. Her WBC went from [address] Perrin with orthopedics was consulted and she recommended to surgical intervention at the time since she did not believe there was osteomyelitis. A bone scan was performed which was highly suspicious for osteomyelitis. An MRI was not performed since patient has surgical hardware due to previous ankle surgery. A tagged WBC scan was recommended. However, the WBC scan is not available at this institution. The patient developed acute renal failure going from a Cr 1.0 to 3.3 in a span of two days. GFR was 15 on 04/17/18. Her K was 4.1 and BUN 20. It was decided to transfer the patient to [facility] due to acute renal failure and need for a higher level of care. The patient was discussed with Dr. Sebastian, Hospitalist at [facility] who accepted the patient via ambulance, however, the patient declined to go via ambulance and preferred going via personal vehicle. The risks of leaving AMA were discussed with the patient and patient understood. She decided to go via private vehicle. The patient was discussed with Dr. Ritchie in the ER who was made aware of the patient's status and that she would show up to the ER. She was instructed to present to the ER at [facility]. - Discharge Data Discharge Date: 04/17/18 Discharge Disposition: Against Medical Advice 07 Condition: Fair - Patient Summary/Data Consults: Consultations 04/12/18 23:20 Consult to Physician [CONS] Stat - Patient Instructions Diet: Regular Diet as Tolerated Activity: As Tolerated Notify Provider of: Fever, Increased Pain, Swelling and Redness, Drainage, Nausea and/or Vomiting - Discharge Plan *PRESCRIPTION DRUG MONITORING PROGRAM REVIEWED*: Not Applicable *COPY OF PRESCRIPTION DRUG MONITORING REPORT IN PATIENT DILEEP: Not Applicable Home Medications: Home Meds Hydrocodone/Acetaminophen [Hydrocodon-Acetaminoph 7.5-325] 5 - 325 mg PO ASDIRECTED PRN 02/27/16 [History] - Discharge Summary/Plan Comment DC Time >30 min.: No - Patient Data Vitals - Most Recent: Last Vital Signs Temp 37.4 C 04/17/18 08:00 Pulse 94 04/17/18 08:00 Resp 12 04/17/18 08:00 BP 163/83 H 04/17/18 08:00 Pulse Ox 94 L 04/17/18 08:00 Weight - Most Recent: 122.243 kg I&O - Last 24 hours: Intake & Output 04/16/18 04/17/18 04/17/18 22:59 06:59 14:59 Intake Total 700 800 Output Total 400 600 Balance 300 200 Lab Results - Last 24 hrs: Laboratory Results - last 24 hr 04/17/18 04/17/18 04/17/18 Range/Units 05:47 05:47 08:15 WBC 13.74 H (4.0-11.0) K/uL RBC 3.48 L (4.30-5.90) M/uL Hgb 9.5 L (12.0-16.0) g/dL Hct 30.6 L (36.0-46.0) % MCV 87.9 (80.0-98.0) fL MCH 27.3 (27.0-32.0) pg MCHC 31.0 (31.0-37.0) g/dL RDW Std Deviation 52.0 (28.0-62.0) fl RDW Coeff of Cass 16 H (11.0-15.0) % Plt Count 256 (150-400) K/uL MPV 10.00 (7.40-12.00) fL Neut % (Auto) 72.8 (48.0-80.0) % Lymph % (Auto) 14.7 L (16.0-40.0) % [place] % (Auto) 11.4 (0.0-15.0) % Eos % (Auto) 1.0 (0.0-7.0) % Baso % (Auto) 0.1 (0.0-1.5) % Neut # (Auto) 10.0 H (1.4-5.7) K/uL Lymph # (Auto) 2.0 (0.6-2.4) K/uL [place] # (Auto) 1.6 H (0.0-0.8) K/uL Eos # (Auto) 0.1 (0.0-0.7) K/uL Baso # (Auto) 0.0 (0.0-0.1) K/uL Nucleated RBC % 0.0 /100WBC Nucleated RBCs # 0 K/uL Sodium 138 (136-145) mmol/L Potassium 4.1 (3.5-5.1) mmol/L Chloride 106 (98-107) mmol/L Carbon Dioxide 25.5 (21.0-32.0) mmol/L BUN 20 H (7.0-18.0) mg/dL Creatinine 3.3 H (0.6-1.0) mg/dL Est Cr Clr Drug Dosing 24.39 mL/min Estimated GFR (MDRD) 15.7 ml/min Glucose 114 H (74-106) mg/dL Calcium 7.9 L (8.5-10.1) mg/dL Total Bilirubin 0.4 (0.2-1.0) mg/dL AST 9 L (15-37) IU/L ALT 19 (14-63) IU/L Alkaline Phosphatase 97 (46-116) U/L Total Protein 6.8 (6.4-8.2) g/dL Albumin 2.2 L (3.4-5.0) g/dL Globulin 4.6 H (2.0-3.5) g/dL Albumin/Globulin Ratio 0.5 L (1.3-2.8) Urine Color YELLOW Urine Appearance CLEAR Urine pH 6.0 (5.0-8.0) Ur Specific [place] 1.015 (1.001-1.035) Urine Protein 30 (NEGATIVE) mg/dL Urine Glucose (UA) NEGATIVE (NEGATIVE) mg/dL Urine Ketones NEGATIVE (NEGATIVE) mg/dL Urine Occult Blood LARGE H (NEGATIVE) Urine Nitrite NEGATIVE (NEGATIVE) Urine Bilirubin NEGATIVE (NEGATIVE) Urine Urobilinogen 0.2 (<2.0) EU/dL Ur Leukocyte Esterase TRACE (NEGATIVE) Urine RBC 18-20 (0-2/HPF) Urine WBC 5-7 (0-5/HPF) Ur Epithelial Cells OCCASIONAL (NONE-FEW) Urine Bacteria RARE (NEGATIVE) JONAHTAN Results - Last 24 hrs: Microbiology 04/12/18 21:50 Aerobic Blood Culture - Preliminary Blood - Venous NO GROWTH AFTER 4 DAYS Anaerobic Blood Culture - Preliminary NO GROWTH AFTER 4 DAYS 04/12/18 21:55 Aerobic Blood Culture - Preliminary Blood - Venous - Lab Draw NO GROWTH AFTER 4 DAYS Anaerobic Blood Culture - Preliminary NO GROWTH AFTER 4 DAYS Med Orders - Current: Current Medications Docusate Sodium (Colace) 100 mg PO BID PRN PRN Reason: Constipation Morphine Sulfate (Morphine) 2 mg IVPUSH Q2H PRN PRN Reason: Pain Last Admin: 04/17/18 10:50 Dose: 2 mg Ondansetron HCl (Zofran) 4 mg IVPUSH Q6H PRN PRN Reason: Nausea Last Admin: 04/17/18 10:50 Dose: 4 mg Oxycodone HCl (Oxycodone) 5 mg PO Q4H PRN PRN Reason: Pain Last Admin: 04/14/18 08:54 Dose: 5 mg Pregabalin (Lyrica) 50 mg PO BID [facility]ISSE Last Admin: 04/17/18 08:42 Dose: 50 mg Simethicone (Simethicone) 80 mg PO Q4H PRN PRN Reason: bloated Last Admin: 04/16/18 00:16 Dose: 80 mg Sodium Chloride (Saline Flush) 10 ml FLUSH ASDIRECTED PRN PRN Reason: Keep Vein Open Sodium Chloride (Saline Flush) 2.5 ml FLUSH ASDIRECTED PRN PRN Reason: Keep Vein Open Temazepam (Restoril) 15 mg PO BEDTIME PRN PRN Reason: Sleep Last Admin: 04/17/18 01:48 Dose: 15 mg Discontinued Medications Ceftriaxone Sodium/Dextrose 1 (gm/ Premix) 50 mls @ 100 mls/hr IV ONETIME ONE Stop: 04/12/18 22:19 Last Admin: 04/12/18 22:34 Dose: 100 mls/hr Vancomycin HCl 1 gm/ Sodium (Chloride) 250 mls @ 250 mls/hr IV ONETIME ONE Stop: 04/13/18 00:23 Last Admin: 04/12/18 23:29 Dose: 250 mls/hr Sodium Chloride (Normal Saline) 1,000 mls @ 200 mls/hr IV ASDIRECTED [facility] Last Infusion: 04/14/18 00:48 Dose: 200 mls/hr Vancomycin HCl 1.5 gm/ Sodium (Chloride) 500 mls @ 333.333 mls/hr IV Q8H [facility] Last Admin: 04/15/18 17:16 Dose: Not Given Piperacillin Sod/Tazobactam (Sod 3.375 gm/ Sodium Chloride) 50 mls @ 100 mls/ hr IV Q6H [facility] Last Admin: 04/16/18 06:30 Dose: 100 mls/hr Sodium Chloride (Normal Saline) 1,000 mls @ 999 mls/hr IV STAT ONE Stop: 04/13/18 08:04 Last Admin: 04/13/18 07:54 Dose: 999 mls/hr Sodium Chloride (Normal Saline) 1,000 mls @ 125 mls/hr IV CONTINUOUS ONE Stop: 04/14/18 17:10 Last Admin: 04/14/18 11:22 Dose: 125 mls/hr Sodium Chloride (Normal Saline) 1,000 mls @ 999 mls/hr IV STAT ONE Stop: 04/15/18 09:22 Last Admin: 04/15/18 15:39 Dose: Not Given Vancomycin HCl 1.5 gm/ Sodium (Chloride) 500 mls @ 333.333 mls/hr IV Q12H [facility] Last Admin: 04/16/18 10:58 Dose: Not Given Sodium Chloride (Normal Saline) 1,000 mls @ 175 mls/hr IV ASDIRECTED [facility] Stop: 04/16/18 16:28 Last Admin: 04/16/18 11:27 Dose: 175 mls/hr Ketorolac Tromethamine (Toradol) 60 mg IM ONETIME ONE Stop: 04/12/18 21:33 Last Admin: 04/12/18 21:38 Dose: 60 mg Ketorolac Tromethamine (Toradol) 30 mg IVPUSH ONETIME ONE Stop: 04/13/18 07:07 Last Admin: 04/13/18 07:49 Dose: 30 mg Ketorolac Tromethamine (Toradol) 30 mg IVPUSH Q6H PRN PRN Reason: Pain Stop: 04/18/18 15:44 Last Admin: 09/29/18 18:56 Dose: 30 mg Morphine Sulfate (Morphine) 2 mg IVPUSH ONETIME ONE Stop: 04/12/18 23:36 Last Admin: 04/12/18 23:42 Dose: 2 mg Ondansetron HCl (Zofran) 4 mg IVPUSH ONETIME ONE Stop: 04/14/18 12:12 Last Admin: 04/14/18 12:20 Dose: 4 mg Polyethylene Glycol (Miralax) 17 gm PO ONETIME ONE Stop: 04/16/18 11:16 Last Admin: 04/16/18 11:27 Dose: 17 gm Promethazine HCl (Phenergan) 12.5 mg IM ONETIME ONE Stop: 04/15/18 11:10 Last Admin: 04/15/18 17:17 Dose: Not Given Vancomycin HCl (Pharmacy To Dose - Vancomycin) 1 dose .XX ASDIRECTED DENISSE
[2018-04-17 11:36] VITALS: BP 137/76
== END 2018-04-17 11:45 | disposition left against medical advice (07) | DRG 872 ==
LOC: MW.ED 20:54 → MW.MS 23:30
PROVIDERS: ADMIT Internal Medicine; ATTEND Internal Medicine
DX: A41.9 Sepsis, unspecified organism (principal); M86.9 Osteomyelitis, unspecified; N17.9 Acute kidney failure, unspecified; N39.0 Urinary tract infection, site not specified; L97.519 Non-pressure chronic ulcer of other part of right foot with unspecified severity; D72.829 Elevated white blood cell count, unspecified; Z79.2 Long term (current) use of antibiotics; R30.0 Dysuria; F17.200 Nicotine dependence, unspecified, uncomplicated; E66.9 Obesity, unspecified; S82.402D Unspecified fracture of shaft of left fibula, subsequent encounter for closed fracture with routine healing; X58.XXXD Exposure to other specified factors, subsequent encounter; Z68.37 Body mass index [BMI] 37.0-37.9, adult; Z79.891 Long term (current) use of opiate analgesic; Z98.890 Other specified postprocedural states
CPT/HCPCS: 36415; 73590-26-LT; 73590-LT; 73610-26-LT; 73610-LT; 78315; 78315-26; 80053; 80202; 81001; 81025; 83036; 83605; 84550; 85025; 85652; 86140; 87040; 87086; 93005; 93926; 93926-26; 93971-26-LT; 93971-LT; 96365; 96367; 96372; 96375; 99284; 99285-25; A9270-GY; A9503; J0696; J1885; J2270; J2405; J2543; J3370; J7040; J7050

== ENCOUNTER 2019-04-05 20:09 | Observation (INO) | payer OTHER ==
[2019-04-05] MEDS ORDERED: HYDROmorphone 1 MG/ML Syringe IVPUSH ONE (20:44)
[2019-04-05] MEDS ORDERED: Sodium Chloride 0.9% 1,000 ML IV ONE (20:44)
[2019-04-05] MEDS ORDERED: Ondansetron 4 MG/2 ML SDV IVPUSH ONE (20:44)
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
[2019-04-05 21:41] LABS: BLOOD UREA NITROGEN,BUN 12 mg/dL (7.0-18.0); CARBON DIOXIDE,CO2 28.1 mmol/L (21.0-32.0); CHLORIDE,CL 103 mmol/L (98-107); GLUCOSE RANDOM 88 mg/dL (74-106); SODIUM,NA 140 mmol/L (136-145)
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
--- NOTE | 2019-04-05 22:04 | CR ---
HISTORY: Evaluate for osteomyelitis. COMPARISON: 07/24/2017 FINDINGS: The left foot is examined with AP and lateral views. There has been erosion of the tip of the 2nd distal phalanx during the interval, consistent with osteomyelitis. There is sclerosis of the bone adjacent to the area of erosion. No definite gas is seen in the soft tissues and there is no sign of a radiopaque foreign body in the tip of the 2nd toe. There is no change in moderate diffuse soft tissue swelling of the base of the great toe. There is no sign of any osseous destruction in this region to suggest osteomyelitis. There is no sign of any gas or radiopaque foreign body in the area of swelling. There is no sign of fracture or dislocation. There is mild diffuse swelling of the distal foot with no sign of any radiopaque foreign body or gas in the soft tissues. There is no change in a small plantar calcaneal spur. Again seen are changes of ORIF of a distal fibular fracture with a lateral metallic plate and anchoring screws. An inter fragmentary screw is seen as well. There is mild secondary osteoarthritis of the ankle mortise, unchanged. IMPRESSION: New erosion of the tip of the 2nd distal phalanx with adjacent sclerosis, consistent with osteomyelitis. No change in moderate diffuse soft tissue swelling of the base of the great toe with nothing seen to suggest osteomyelitis. No definite abscess seen in the soft tissues. Dictated by Suleman Ya MD @ Apr 05 2019 9:57PM Signed by Dr. Suleman Ya @ Apr 05 2019 10:02PM
[2019-04-05] MEDS ORDERED: SODIUM CHLORIDE 0.9% IVPUSH SCH ×6 (22:15→23:15)
[2019-04-05] MEDS ORDERED: DAPTOMYCIN IVPUSH SCH ×6 (22:15→23:15)
[2019-04-05] MEDS ORDERED: Acetaminophen/HYDROcodone 325-7.5 MG Tab PO PRN (22:56)
[2019-04-06] MEDS ORDERED: Morphine 2 MG/ML Syringe IVPUSH PRN (01:04)
[2019-04-06] MEDS: Sodium Chloride 0.9% 1,000 ML IV SCH ×2 (04:00→11:53)
[2019-04-06] MEDS: HYDROmorphone 1 MG/ML Syringe IVPUSH PRN ×3 (04:20→11:46)
[2019-04-06 06:37] LABS: BLOOD UREA NITROGEN,BUN 11 mg/dL (7.0-18.0); CARBON DIOXIDE,CO2 25.1 mmol/L (21.0-32.0); CHLORIDE,CL 104 mmol/L (98-107); GLUCOSE RANDOM 113 mg/dL (74-106); POTASSIUM,K 3.6 mmol/L (3.5-5.1); SODIUM,NA 138 mmol/L (136-145)
[2019-04-06] MEDS ORDERED: Morphine 4 MG/ML Syringe IVPUSH ONE (10:09)
[2019-04-06 10:16] VITALS: BP 106/58; PULSE 85
--- NOTE | 2019-04-06 11:15 | PCM.DCSUM1 ---
<Chandrika Morris - Last Filed: 04/06/19 11:29> Discharge Summary - Hospital Course Free Text/Narrative:: Admission Date: 04/05/19 Discharge Date: 04/06/19 Admission Diagnosis: 1. Left foot ulcer with cellulitis 2. Chronic back pain Discharge Diagnosis: 1. Left foot ulcer with cellulitis 2. Chronic back pain Procedures: None Consults: None Hospital Course: The patient is a 38 year old female who was admitted for left foot ulcer with cellulitis. She has had this ulcer for the past 1.5 years. She has been following as an outpatient with podiatry who has been debriding the wound and intermittent antibiotics. Last visit was November or December. She was admitted for osteomyelitis in [place] last year. Work up on this admission showed an leukocytosis of 13, normal lactate level, and kidney function within normal limits. Foot x-ray showed new erosion of tip of 2nd distal phalanx with adjacent sclerosis consistent with osteomyelitis. The patient was started on Daptomycin, IVF, and pain control while admitted. It was deemed that the patient needed a higher level care as [place] did not have ortho or podiatry providers available. The case was discussed with the hospitalist, Dr. Taylor, at [facility] in [place], who accepted the patient. Disposition: Transfer [facility], accepting physician Dr. Taylor Discharge Condition: vitals stable, tolerating oral diet, symptom improvement - Discharge Data Discharge Date: 04/06/19 Discharge Disposition: DC/Tfer to Acute Hospital 02 Condition: Fair - Referral to Home Health Primary Care Physician: Agata Thompson NP - Patient Summary/Data Consults: Consultations 04/06/19 07:09 Consult to Wound Care Services [CONS] Routine - Patient Instructions Diet: Usual Diet as Tolerated Notify Provider of: Fever, Increased Pain, Swelling and Redness, Drainage, Nausea and/or Vomiting Other/Special Instructions: Additional symptoms include chest pain, shortness of breath, abdominal pain, increased redness of foot or drainage from wound. - Discharge Plan *PRESCRIPTION DRUG MONITORING PROGRAM REVIEWED*: No *COPY OF PRESCRIPTION DRUG MONITORING REPORT IN PATIENT DILEEP: No Home Medications: Home Meds Hydrocodone/Acetaminophen [Hydrocodon-Acetaminophen 5-325] 1 tab PO Q6HR PRN [History] Patient Handouts: Cellulitis, Adult, [id number] Referrals: Agata Thompson NP [Primary Care Provider] - 04/19/19 8:30 am (Arrive 15 minutes early with photo ID and insurance card. If you are not early they will not see you. ) - Discharge Summary/Plan Comment DC Time >30 min.: No - Patient Data Vitals - Most Recent: Last Vital Signs Temp 96.7 F 04/06/19 09:15 Pulse 85 04/06/19 09:15 Resp 18 04/06/19 09:15 BP 106/58 L 04/06/19 09:15 Pulse Ox 96 04/06/19 09:15 Weight - Most Recent: 123.377 kg I&O - Last 24 hours: Intake & Output 04/05/19 04/06/19 04/06/19 22:59 06:59 14:59 Intake Total 1482 Output Total 300 Balance 1182 Lab Results - Last 24 hrs: Laboratory Results - last 24 hr 04/05/19 04/05/19 04/05/19 Range/Units 21:06 21:06 21:06 WBC 13.21 H (4.0-11.0) K/uL RBC 4.42 (4.30-5.90) M/uL Hgb 12.7 (12.0-16.0) g/dL Hct 39.7 (36.0-46.0) % MCV 89.8 (80.0-98.0) fL MCH 28.7 (27.0-32.0) pg MCHC 32.0 (31.0-37.0) g/dL RDW Std Deviation 54.2 (28.0-62.0) fl RDW Coeff of Cass 16 H (11.0-15.0) % Plt Count 268 (150-400) K/uL MPV 10.70 (7.40-12.00) fL Neut % (Auto) 75.6 (48.0-80.0) % Lymph % (Auto) 16.5 (16.0-40.0) % [place] % (Auto) 6.6 (0.0-15.0) % Eos % (Auto) 1.1 (0.0-7.0) % Baso % (Auto) 0.2 (0.0-1.5) % Neut # (Auto) 10.0 H (1.4-5.7) K/uL Lymph # (Auto) 2.2 (0.6-2.4) K/uL [place] # (Auto) 0.9 H (0.0-0.8) K/uL Eos # (Auto) 0.2 (0.0-0.7) K/uL Baso # (Auto) 0.0 (0.0-0.1) K/uL Nucleated RBC % 0.0 /100WBC Nucleated RBCs # 0 K/uL Lactate 1.0 (0.20-2.00) mmol/L Sodium 140 (136-145) mmol/L Potassium 4.0 (3.5-5.1) mmol/L Chloride 103 (98-107) mmol/L Carbon Dioxide 28.1 (21.0-32.0) mmol/L BUN 12 (7.0-18.0) mg/dL Creatinine 0.9 (0.6-1.0) mg/dL Est Cr Clr Drug Dosing 88.57 mL/min Estimated GFR (MDRD) > 60.0 ml/min Glucose 88 (74-106) mg/dL Calcium 8.8 (8.5-10.1) mg/dL Total Bilirubin 0.3 (0.2-1.0) mg/dL AST 19 (15-37) IU/L ALT 27 (14-63) IU/L Alkaline Phosphatase 119 H (46-116) U/L Total Protein 8.1 (6.4-8.2) g/dL Albumin 3.2 L (3.4-5.0) g/dL Globulin 4.9 H (2.6-4.0) g/dL Albumin/Globulin Ratio 0.7 L (0.9-1.6) 04/06/19 04/06/19 Range/Units 06:10 06:10 WBC 13.65 H (4.0-11.0) K/uL RBC 3.58 L (4.30-5.90) M/uL Hgb 10.1 L (12.0-16.0) g/dL Hct 32.1 L (36.0-46.0) % MCV 89.7 (80.0-98.0) fL MCH 28.2 (27.0-32.0) pg MCHC 31.5 (31.0-37.0) g/dL RDW Std Deviation 53.5 (28.0-62.0) fl RDW Coeff of Cass 16 H (11.0-15.0) % Plt Count 218 (150-400) K/uL MPV 10.30 (7.40-12.00) fL Neut % (Auto) 72.1 (48.0-80.0) % Lymph % (Auto) 18.5 (16.0-40.0) % [place] % (Auto) 8.2 (0.0-15.0) % Eos % (Auto) 1.1 (0.0-7.0) % Baso % (Auto) 0.1 (0.0-1.5) % Neut # (Auto) 9.8 H (1.4-5.7) K/uL Lymph # (Auto) 2.5 H (0.6-2.4) K/uL [place] # (Auto) 1.1 H (0.0-0.8) K/uL Eos # (Auto) 0.2 (0.0-0.7) K/uL Baso # (Auto) 0.0 (0.0-0.1) K/uL Nucleated RBC % 0.0 /100WBC Nucleated RBCs # 0 K/uL Lactate (0.20-2.00) mmol/L Sodium 138 (136-145) mmol/L Potassium 3.6 (3.5-5.1) mmol/L Chloride 104 (98-107) mmol/L Carbon Dioxide 25.1 (21.0-32.0) mmol/L BUN 11 (7.0-18.0) mg/dL Creatinine 0.7 (0.6-1.0) mg/dL Est Cr Clr Drug Dosing 113.88 mL/min Estimated GFR (MDRD) > 60.0 ml/min Glucose 113 H (74-106) mg/dL Calcium 7.8 L (8.5-10.1) mg/dL Total Bilirubin (0.2-1.0) mg/dL AST (15-37) IU/L ALT (14-63) IU/L Alkaline Phosphatase (46-116) U/L Total Protein (6.4-8.2) g/dL Albumin (3.4-5.0) g/dL Globulin (2.6-4.0) g/dL Albumin/Globulin Ratio (0.9-1.6) Med Orders - Current: Current Medications Hydrocodone Bitart/Acetaminophen ([place] 325-7.5 Mg) 1 - 2 tab PO Q6H PRN PRN Reason: Pain Last Admin: 04/05/19 23:39 Dose: 2 tab Hydromorphone HCl (Dilaudid) 1 mg IVPUSH Q3H PRN PRN Reason: Pain Last Admin: 04/06/19 09:02 Dose: 1 mg Sodium Chloride (Normal Saline) 1,000 mls @ 125 mls/hr IV ASDIRECTED DENISSE Last Admin: 04/06/19 04:00 Dose: 125 mls/hr Daptomycin 600 mg/ Sodium (Chloride) 12 mls @ 360 mls/hr IVPUSH Q24H [facility] Discontinued Medications Hydromorphone HCl (Dilaudid) 1 mg IVPUSH ONETIME ONE Stop: 04/05/19 20:45 Last Admin: 04/05/19 21:05 Dose: 1 mg Sodium Chloride (Normal Saline) 1,000 mls @ 125 mls/hr IV .Bolus ONE Stop: 04/06/19 04:43 Last Admin: 04/05/19 21:05 Dose: 125 mls/hr Daptomycin 390 mg/ Sodium (Chloride) 7 mls @ 210 mls/hr IVPUSH DAILY [facility] Daptomycin 390 mg/ Sodium (Chloride) 7 mls @ 210 mls/hr IVPUSH Q24H [facility] Last Admin: 04/05/19 23:49 Dose: Not Given Daptomycin 588 mg/ Sodium (Chloride) 20 mls @ 300 mls/hr IVPUSH Q24H [facility] Last Admin: 04/05/19 23:50 Dose: Not Given Daptomycin 590 mg/ Sodium (Chloride) 11.8 mls @ 177 mls/hr IVPUSH Q24H [facility] Last Admin: 04/05/19 23:40 Dose: 177 mls/hr Morphine Sulfate (Morphine) 2 mg IVPUSH Q3H PRN PRN Reason: Pain (severe 7-10) Last Admin: 04/06/19 01:30 Dose: 2 mg Morphine Sulfate (Morphine) 4 mg IVPUSH ONETIME ONE Stop: 04/06/19 10:10 Last Admin: 04/06/19 10:29 Dose: 4 mg Ondansetron HCl (Zofran) 4 mg IVPUSH ONETIME ONE Stop: 04/05/19 20:45 Last Admin: 04/05/19 21:05 Dose: 4 mg <AndradeKameron Dimitry - Last Filed: 04/06/19 18:53> Discharge Summary - Referral to Home Health Primary Care Physician: Agata Thompson NP - Patient Summary/Data Consults: Consultations 04/06/19 07:09 Consult to Wound Care Services [CONS] Routine - Patient Data Vitals - Most Recent: Last Vital Signs Temp 35.9 C 04/06/19 09:15 Pulse 85 04/06/19 09:15 Resp 18 04/06/19 09:15 BP 106/58 L 04/06/19 09:15 Pulse Ox 96 04/06/19 09:15 I&O - Last 24 hours: Intake & Output 04/06/19 04/06/19 04/06/19 06:59 14:59 22:59 Intake Total 1482 760 Output Total 300 500 Balance 1182 260 Lab Results - Last 24 hrs: Laboratory Results - last 24 hr 04/05/19 04/05/19 04/05/19 Range/Units 21:06 21:06 21:06 WBC 13.21 H (4.0-11.0) K/uL RBC 4.42 (4.30-5.90) M/uL Hgb 12.7 (12.0-16.0) g/dL Hct 39.7 (36.0-46.0) % MCV 89.8 (80.0-98.0) fL MCH 28.7 (27.0-32.0) pg MCHC 32.0 (31.0-37.0) g/dL RDW Std Deviation 54.2 (28.0-62.0) fl RDW Coeff of Cass 16 H (11.0-15.0) % Plt Count 268 (150-400) K/uL MPV 10.70 (7.40-12.00) fL Neut % (Auto) 75.6 (48.0-80.0) % Lymph % (Auto) 16.5 (16.0-40.0) % [place] % (Auto) 6.6 (0.0-15.0) % Eos % (Auto) 1.1 (0.0-7.0) % Baso % (Auto) 0.2 (0.0-1.5) % Neut # (Auto) 10.0 H (1.4-5.7) K/uL Lymph # (Auto) 2.2 (0.6-2.4) K/uL [place] # (Auto) 0.9 H (0.0-0.8) K/uL Eos # (Auto) 0.2 (0.0-0.7) K/uL Baso # (Auto) 0.0 (0.0-0.1) K/uL Nucleated RBC % 0.0 /100WBC Nucleated RBCs # 0 K/uL Lactate 1.0 (0.20-2.00) mmol/L Sodium 140 (136-145) mmol/L Potassium 4.0 (3.5-5.1) mmol/L Chloride 103 (98-107) mmol/L Carbon Dioxide 28.1 (21.0-32.0) mmol/L BUN 12 (7.0-18.0) mg/dL Creatinine 0.9 (0.6-1.0) mg/dL Est Cr Clr Drug Dosing 88.57 mL/min Estimated GFR (MDRD) > 60.0 ml/min Glucose 88 (74-106) mg/dL Calcium 8.8 (8.5-10.1) mg/dL Total Bilirubin 0.3 (0.2-1.0) mg/dL AST 19 (15-37) IU/L ALT 27 (14-63) IU/L Alkaline Phosphatase 119 H (46-116) U/L Total Protein 8.1 (6.4-8.2) g/dL Albumin 3.2 L (3.4-5.0) g/dL Globulin 4.9 H (2.6-4.0) g/dL Albumin/Globulin Ratio 0.7 L (0.9-1.6) 04/06/19 04/06/19 Range/Units 06:10 06:10 WBC 13.65 H (4.0-11.0) K/uL RBC 3.58 L (4.30-5.90) M/uL Hgb 10.1 L (12.0-16.0) g/dL Hct 32.1 L (36.0-46.0) % MCV 89.7 (80.0-98.0) fL MCH 28.2 (27.0-32.0) pg MCHC 31.5 (31.0-37.0) g/dL RDW Std Deviation 53.5 (28.0-62.0) fl RDW Coeff of [place] 16 H (11.0-15.0) % Plt Count 218 (150-400) K/uL MPV 10.30 (7.40-12.00) fL Neut % (Auto) 72.1 (48.0-80.0) % Lymph % (Auto) 18.5 (16.0-40.0) % [place] % (Auto) 8.2 (0.0-15.0) % Eos % (Auto) 1.1 (0.0-7.0) % Baso % (Auto) 0.1 (0.0-1.5) % Neut # (Auto) 9.8 H (1.4-5.7) K/uL Lymph # (Auto) 2.5 H (0.6-2.4) K/uL [place] # (Auto) 1.1 H (0.0-0.8) K/uL Eos # (Auto) 0.2 (0.0-0.7) K/uL Baso # (Auto) 0.0 (0.0-0.1) K/uL Nucleated RBC % 0.0 /100WBC Nucleated RBCs # 0 K/uL Lactate (0.20-2.00) mmol/L Sodium 138 (136-145) mmol/L Potassium 3.6 (3.5-5.1) mmol/L Chloride 104 (98-107) mmol/L Carbon Dioxide 25.1 (21.0-32.0) mmol/L BUN 11 (7.0-18.0) mg/dL Creatinine 0.7 (0.6-1.0) mg/dL Est Cr Clr Drug Dosing 113.88 mL/min Estimated GFR (MDRD) > 60.0 ml/min Glucose 113 H (74-106) mg/dL Calcium 7.8 L (8.5-10.1) mg/dL Total Bilirubin (0.2-1.0) mg/dL AST (15-37) IU/L ALT (14-63) IU/L Alkaline Phosphatase (46-116) U/L Total Protein (6.4-8.2) g/dL Albumin (3.4-5.0) g/dL Globulin (2.6-4.0) g/dL Albumin/Globulin Ratio (0.9-1.6) Med Orders - Current: Current Medications Discontinued Medications Hydrocodone Bitart/Acetaminophen ([place] 325-7.5 Mg) 1 - 2 tab PO Q6H PRN PRN Reason: Pain Last Admin: 04/05/19 23:39 Dose: 2 tab Hydromorphone HCl (Dilaudid) 1 mg IVPUSH ONETIME ONE Stop: 04/05/19 20:45 Last Admin: 04/05/19 21:05 Dose: 1 mg Hydromorphone HCl (Dilaudid) 1 mg IVPUSH Q3H PRN PRN Reason: Pain Last Admin: 04/06/19 11:46 Dose: 1 mg Sodium Chloride (Normal Saline) 1,000 mls @ 125 mls/hr IV .Bolus ONE Stop: 04/06/19 04:43 Last Admin: 04/05/19 21:05 Dose: 125 mls/hr Daptomycin 390 mg/ Sodium (Chloride) 7 mls @ 210 mls/hr IVPUSH DAILY [facility] Sodium Chloride (Normal Saline) 1,000 mls @ 125 mls/hr IV ASDIRECTED [facility] Last Admin: 04/06/19 11:53 Dose: 125 mls/hr Daptomycin 390 mg/ Sodium (Chloride) 7 mls @ 210 mls/hr IVPUSH Q24H [facility] Last Admin: 04/05/19 23:49 Dose: Not Given Daptomycin 588 mg/ Sodium (Chloride) 20 mls @ 300 mls/hr IVPUSH Q24H [facility] Last Admin: 04/05/19 23:50 Dose: Not Given Daptomycin 590 mg/ Sodium (Chloride) 11.8 mls @ 177 mls/hr IVPUSH Q24H [facility] Last Admin: 04/05/19 23:40 Dose: 177 mls/hr Daptomycin 600 mg/ Sodium (Chloride) 12 mls @ 360 mls/hr IVPUSH Q24H [facility] Morphine Sulfate (Morphine) 2 mg IVPUSH Q3H PRN PRN Reason: Pain (severe 7-10) Last Admin: 04/06/19 01:30 Dose: 2 mg Morphine Sulfate (Morphine) 4 mg IVPUSH ONETIME ONE Stop: 04/06/19 10:10 Last Admin: 04/06/19 10:29 Dose: 4 mg Ondansetron HCl (Zofran) 4 mg IVPUSH ONETIME ONE Stop: 04/05/19 20:45 Last Admin: 04/05/19 21:05 Dose: 4 mg - Free Text/Narrative Note: I have seen and evaluated the patient with the resident. I have discussed findings and treatment plan with the resident. I agree with the assessment and plan outlined in the following note.
[2019-04-06] MEDS ORDERED: DAPTOmycin 600 MG in Sodium Chloride 0.9% 12 ML IVPUSH SCH (23:00)
== END 2019-04-06 12:50 ==
LOC: MW.ED 20:09 → MW.MS 22:00
PROVIDERS: ADMIT Internal Medicine; ATTEND Internal Medicine
DX: L97.529 Non-pressure chronic ulcer of other part of left foot with unspecified severity (principal); L03.032 Cellulitis of left toe; G62.9 Polyneuropathy, unspecified; G89.29 Other chronic pain; M54.9 Dorsalgia, unspecified; Z88.1 Allergy status to other antibiotic agents; Z87.891 Personal history of nicotine dependence
CPT/HCPCS: 36415; 73620; 80048; 80053; 83605; 85025; 87040; 96361; 96374; 96375; 99285; A9270; J0878; J1170; J2270; J2405; J7040; 96376; G0378

== ENCOUNTER 2020-08-18 23:59 | Emergency (ER) | payer OTHER ==
[2020-08-19] MEDS ORDERED: Acetaminophen/HYDROcodone 325-5 MG Tab PO ONE ×2 (00:29→01:44)
[2020-08-19 01:06] LABS: BLOOD UREA NITROGEN,BUN 13 mg/dL (7.0-18.0); CARBON DIOXIDE,CO2 26.7 mmol/L (21.0-32.0); CHLORIDE,CL 102 mmol/L (98-107); GLUCOSE RANDOM 89 mg/dL (74-106); POTASSIUM,K 3.7 mmol/L (3.5-5.1); SODIUM,NA 139 mmol/L (136-145)
--- NOTE | 2020-08-19 01:35 | CR ---
INDICATION: Worsening foot infection. History of osteomyelitis. COMPARISON: 04/05/2019 left foot radiographs. FINDINGS/IMPRESSION: Left foot, three views. Diffuse soft tissue swelling is present, greatest over the great toe. No soft tissue gas collections are evident. There are postoperative changes in the distal tibia and fibula, as before. No acute fractures are noted. There is unchanged flattening of the 2nd and 3rd metatarsal heads suggesting chronic [place] infractions. There is an unchanged small erosion involving the tuft of the distal phalanx of the 2nd toe which could reflect chronic osteomyelitis. No new erosions are identified to indicate active osteomyelitis. Dictated by Avinash Crawford MD @ 08/19/2020 1:32:35 AM Dictated by: Avinash Crawford MD @ 08/19/2020 01:33:49 (Electronically Signed)
[2020-08-19] MEDS ORDERED: Cephalexin 500 MG Cap PO ONE (02:00)
[2020-08-19] MEDS ORDERED: Ciprofloxacin 500 MG Tab PO ONE (02:01)
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
[2020-08-19 02:52] VITALS: BP 130/69; PULSE 65
== END 2020-08-19 02:35 | disposition home or self-care (01) ==
LOC: MW.ED 23:59
DX: L03.116 Cellulitis of left lower limb (principal); M86.472 Chronic osteomyelitis with draining sinus, left ankle and foot; Z88.1 Allergy status to other antibiotic agents
CPT/HCPCS: 36415; 73630; 80048; 83605; 85025; 86140; 87070; 87186; 99283; A9270; 87077

== ENCOUNTER 2022-05-05 22:31 | Emergency (ER) | payer OTHER ==
[2022-05-06] MEDS ORDERED: Ibuprofen 600 MG Tab PO ONE (00:31)
[2022-05-06] MEDS ORDERED: Cephalexin 500 MG Cap PO ONE (00:31)
[2022-05-06] MEDS ORDERED: Acetaminophen/HYDROcodone 325-5 MG Tab PO ONE (00:32)
[2022-05-06 00:41] VITALS: BP 148/93; PULSE 83
== END 2022-05-06 00:41 | disposition home or self-care (01) ==
LOC: MW.ED 22:31
DX: K04.7 Periapical abscess without sinus (principal); Z88.1 Allergy status to other antibiotic agents
CPT/HCPCS: 99282; A9270

== ENCOUNTER 2024-07-09 00:22 | Emergency (ER) | payer OTHER ==
[2024-07-09] MEDS: Proparacaine 0.5% Ophth Soln 15 ML Bottle EYEBOTH ONE (01:49)
[2024-07-09] MEDS: Fluorescein 1 MG Ophth Strip EYEBOTH ONE (01:50)
[2024-07-09] MEDS: Moxifloxacin 0.5% Ophth Soln 3 ML Bottle EYELF ONE (02:38)
[2024-07-09 02:54] VITALS: BP 118/74; PULSE 75
== END 2024-07-09 02:50 | disposition home or self-care (01) ==
LOC: MW.ED 00:22
DX: H10.9 Unspecified conjunctivitis (principal); Z88.1 Allergy status to other antibiotic agents; Z79.899 Other long term (current) drug therapy
CPT/HCPCS: 99282; 99283; J3490

== ENCOUNTER 2024-10-25 14:00 | Emergency (ER) | payer OTHER ==
[2024-10-25] MEDS: Lidocaine 1% 5 ML VIAL INJECT ONE ×2 (15:05→15:51)
[2024-10-25 16:31] VITALS: BP 136/82; PULSE 67
== END 2024-10-25 16:35 | disposition home or self-care (01) ==
LOC: MW.ED 14:00
DX: S01.01XA Laceration without foreign body of scalp, initial encounter (principal); F17.210 Nicotine dependence, cigarettes, uncomplicated; Z79.899 Other long term (current) drug therapy; Z88.1 Allergy status to other antibiotic agents; W01.198A Fall on same level from slipping, tripping and stumbling with subsequent striking against other object, initial encounter
CPT/HCPCS: 12001; 70450; 99283; J2003